=== PATIENT | female | born 1995 | race Caucasian/White ===

== ENCOUNTER 2021-10-08 16:20 | Outpatient (REF) | payer OTHER, SELFPAY ==
--- NOTE | ~2021-10-08 | XR_ITS ---
EXAMINATION: XR KNEE, LEFT CLINICAL INFORMATION: Pain. COMPARISON: None TECHNIQUE: Four views of the left knee. FINDINGS: Spurring at the insertion of the quadriceps and infrapatellar tendon. There is also spurring at the patellofemoral articulation. Small amount joint fluid is present. Medial joint space loss. Mild tibial spine spurring is seen. The patella is fairly well-seated on the sunrise image. XR/XR knee LT 4V IMPRESSION: Some degenerative changes are noted. Possible small effusion.
== END 2021-10-08 16:21 | disposition home or self-care (01) ==
LOC: HO.XRAY 16:20
PROVIDERS: PCP Internal Medicine; Visit Provider Internal Medicine
DX: M25.562 Pain in left knee (principal)
CPT/HCPCS: 73564

== ENCOUNTER → 2022-04-23 11:09 | Outpatient (BNVA) | payer OTHER, SELFPAY | PROVIDERS: PCP Internal Medicine; Visit Provider Physician Assistant | DX: M17.12 Unilateral primary osteoarthritis, left knee (principal); M25.562 Pain in left knee | CPT/HCPCS: 99202 ==